=== PATIENT | male | born 1965 | race Caucasian/White ===

== ENCOUNTER → 2016-12-24 | Outpatient (CLI) | payer BC, OTHER ==
[~2016-12-24] MED LIST: CITA20TA5 PO; CYCL-259 PO; FAMO-79 PO; HYDR-3307 PO; LEVO75TA5 PO; LISI1TAB7 PO; METH4TAB2 PO
== END ==
LOC: STAR 13:45
PROVIDERS: ATTEND Neurological Surgery
DX: Z02.9 Encounter for administrative examinations, unspecified (principal)